=== PATIENT | male | born 1960 | race Caucasian/White ===

== ENCOUNTER → 2019-12-29 | Outpatient (CLI) | payer OTHER | END | disposition home or self-care (01) | LOC: LAB SHORT 12:15 → PLD 12:15 | DX: L57.0 Actinic keratosis (principal) | CPT/HCPCS: 88305 ==

== ENCOUNTER 2021-04-01 06:01 | Day surgery (SDC) | payer OTHER ==
[~2021-04-01] VITALS: Ht 167.6 cm; Wt 123.0 kg
--- NOTE | 2021-04-01 06:15 | NUR ---
PT VERY PLEASENT, HE IS WELL KNOWN TO ME PERSONALLY. A BIT ANXIOUS ABOUT SURGERY. Ambulatory in Day Surgery. History, Chart, Medications and Allergies reviewed before start of procedure. Lungs clear T/O to Auscultation. Patient confirms NPO status and agrees with scheduled surgery. Pre-Op teaching done. Pt verbalizes understanding. Patient States Post-Procedure ride home has been arranged.
--- NOTE | 2021-04-01 10:44 | NUR ---
PATIENT ALERT AND ORIENTED. REQUESTING DRINK AND SNACK, REPOSITIONED SELF IN BED. STERISTRIPS X3 ARE ALL CDI. TOLERATING PO FLUIDS AND FOOD.
--- NOTE | 2021-04-01 11:35 | NUR ---
Patient up to Ambulate independently. Gait steady. Discharge instructions reviewed with patient. Patient verbalizes understanding. Copy given to patient to take home. Dressing to procedure site clean, dry, intact with no visible drainage, swelling, erythema or bruising noted. Patient States Post-Procedure ride home has been arranged. Discharged via wheelchair to private car for ride home. ALL BELONGINGS RETURNED TO PATIENT, INCLUDING GLASSES.
== END 2021-04-01 11:40 | disposition home or self-care (01) ==
LOC: ORSCMMR 06:01 → ORD 07:30 → ORSCMMR 11:40
PROVIDERS: Surgery
PROC: 0YU54JZ Supplement Right Inguinal Region with Synthetic Substitute, Percutaneous Endoscopic Approach (ICD-10-PCS; principal; 2021-04-01 07:30)
PROC: 8E0W4CZ Robotic Assisted Procedure of Trunk Region, Percutaneous Endoscopic Approach (ICD-10-PCS; principal; 2021-04-01 07:30)
DX: K40.90 Unilateral inguinal hernia, without obstruction or gangrene, not specified as recurrent (principal); E66.01 Morbid (severe) obesity due to excess calories; Z68.41 Body mass index [BMI] 40.0-44.9, adult
CPT/HCPCS: 49650; S2900; A9270; C1781; J0690; J1100; J1885; J2405; J2704; J3010; J7120